=== PATIENT | female | born 1965 | race African-American/Black ===

== ENCOUNTER 2016-09-25 08:15 | Emergency (ER) | payer SELFPAY ==
[2016-09-25] MEDS ORDERED: NAPROXEN 250 MG TABLET PO ONE (08:57)
--- NOTE | 2016-09-25 09:44 | ER Document Report ---
HPI - HPI Patient complains to provider of: bilateral knee pain Onset: Other - Mom Onset/Duration: Persistent Quality of pain: Achy Pain Level: 3 Context: Patient presents to the emergency department with complaints of bilateral knee pain for over a month. Patient she is very active in sports. Patient reports she is currently playing softball and both of her knees hurt when she runs. She denies trauma. She reports in the past she's falling had abrasions to her knees but denies fractures. 7 symptoms such as fever vomiting diarrhea. Associated Symptoms: None Exacerbated by: Walking Relieved by: Denies Similar symptoms previously: No Recently seen / treated by doctor: No - CARDIOVASCULAR Cardiovascular: DENIES: Chest pain - DERM Skin Color: Normal Past Medical History - General Information source: Patient Last Menstrual Period: August 2016 - Social History Smoking Status: Unknown if Ever Smoked Cigarette use (# per day): No Frequency of alcohol use: None Drug Abuse: None Occupation: [employer] Family History: None Patient has suicidal ideation: No Patient has homicidal ideation: No - Medical History Medical History: Negative Renal/ Medical History: Denies: Hx Peritoneal Dialysis Surgical Hx: Negative Vertical Provider Document - CONSTITUTIONAL Agree With Documented VS: Yes Exam Limitations: No Limitations General Appearance: WD/WN, No Apparent Distress - INFECTION CONTROL TRAVEL OUTSIDE OF THE [place] IN LAST 30 DAYS: No - HEENT HEENT: Atraumatic, Normocephalic - NECK Neck: Normal Inspection, Supple - RESPIRATORY Respiratory: Breath Sounds Normal, No Respiratory Distress O2 Sat by Pulse Oximetry: 99 - CARDIOVASCULAR Cardiovascular: Regular Rate - MUSCULOSKELETAL/EXTREMETIES Musculoskeletal/Extremeties: MAEW, FROM, Tender - Bilateral knee anterior tenderness. No obvious deformity left knee slightly larger than the right knee. No erythema or warmth. - NEURO Level of Consciousness: Awake, Alert, Appropriate Motor/Sensory: No Motor Deficit - DERM Integumentary: Warm, Dry Adult Front & Back Diagram: 1 - Reports pain when running 2 - Reports pain when running Course - Re-evaluation Re-evalutation: 09/25/16 10:05 Patient instructed on bilateral bone spur. Patient instructed on NSAIDs. Patient also instructed to follow-up with orthopedic /sports medicine to discuss physical therapy, exercises and treatment. She verbalized understanding to all instructions. - Vital Signs Vital signs: Temp Pulse Resp BP Pulse Ox 97.9 F 79 16 166/97 H 99 09/25/16 08:20 09/25/16 08:20 09/25/16 08:20 09/25/16 08:20 09/25/16 08:20 - Diagnostic Test Radiology reviewed: Image reviewed, Reports reviewed - EXAM DESCRIPTION: KNEE BILATERAL 1-2 VIEWS COMPLETED DATE/TIME: 09/25/2016 9:30 am REASON FOR STUDY: knee pain COMPARISON: None. NUMBER OF VIEWS: Three views of each knee TECHNIQUE: AP, lateral, and sunrise radiographic images acquired of the right and left knee. LIMITATIONS: None. FINDINGS: MINERALIZATION: Normal. BONES: No acute fracture or dislocation. No worrisome bone lesions. Bilateral patellar spurring is identified. JOINT: No effusion. No chondrocalcinosis. OTHER: Mild osteophytic lipping is identified at the level of the lateral compartments bilaterally. TECHNICAL DOCUMENTATION: JOB ID: [id number]- All Rights Reserved RAD/KNEE BILATERAL 1-2 VIEWS IMPRESSION: No evidence for acute fracture or dislocation. Degenerative changes as noted above Dictated by: THIERRY SAWYER MD CC: FILIPPO GRISSOM NP > <Electronically signed by THIERRY SAWYER MD in OV > 09/25/1644 Discharge - Discharge Clinical Impression: Bilateral knee pain, bilateral patellar bone spurs, Elevated blood pressure reading Condition: Stable Disposition: HOME, SELF-CARE Instructions: Ice Packs (OM), Sports and your Knee (OM), Anti-Inflammatory Medication (OM) Additional Instructions: *You have been evaluated for bilateral knee pain *Ice packs as indicated *Follow up with orthopedics continued pain-call for an appointment *Take medication as prescribed *Return to ED for worsening condition, changes, needs Monitor your blood pressure. Your blood pressure was elevated today. This may be because you were anxious, in pain or because you need medication. It is important to follow up with your primary care provider for full evaluation. Prescriptions: Naproxen 500 mg PO BID #20 tablet Forms: Elevated Blood Pressure Referrals: [facility] [Provider Group] - Follow up in 1 week
[2016-09-25 10:09] VITALS: BP 170/96
== END 2016-09-25 10:11 | disposition home or self-care (01) ==
LOC: ER 08:15
DX: M25.562 Pain in left knee (principal); M25.561 Pain in right knee; M76.52 Patellar tendinitis, left knee; M76.51 Patellar tendinitis, right knee; R03.0 Elevated blood-pressure reading, without diagnosis of hypertension
CPT/HCPCS: 99283